=== PATIENT | male | born 1995 | race Caucasian/White ===

== ENCOUNTER 2019-06-24 14:16 | Emergency (ER) | payer SELFPAY ==
[2019-06-24 14:35] VITALS: BP 134/92; PULSE 79; RESP 18; TEMP 36.6; O2SAT 100
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
--- NOTE | 2019-06-24 15:03 | PC.NURSE ---
dr. arroyo office called at [phone], was listed as documentation clerk plastics on documentation clerk sheet. this rn spoke to [facility] at [phone] and documentation clerk list incorrect but offered to send text request to dr. arroyo. dr. arroyo did call back at [phone] and not documentation clerk.
== END 2019-06-24 15:11 | disposition home or self-care (01) ==
PROVIDERS: Emergency Provider Nurse Practitioner; PCP Family Medicine
DX: S01.511A Laceration without foreign body of lip, initial encounter (principal); Y09 Assault by unspecified means
CPT/HCPCS: 99203; G0463